=== PATIENT | male | born 1940 | race Hispanic/Latino ===

== ENCOUNTER 2017-08-20 12:10 | Emergency (ER) | payer OTHER ==
[~2017-08-20 12:10] MED LIST: GLIP5TAB11 PO; LISI-613 PO; ROSU40 PO; SITA1TAB6 PO; TAMS0.4C32 PO
[2017-08-20 13:02] LABS: BASOPHILS % (AUTO) 0.4 % (0.0-5.0); EOSINOPHILS % (AUTO) 1.3 % (0.0-8.0); HEMATOCRIT 39.5 % (42-54); LYMPHOCYTES % (AUTO) 14.8 % (21.0-51.0); MEAN CORPUSCULAR HEMOGLOBIN 29.3 pg (27.0-33.0); MEAN CORPUSCULAR VOLUME 86.2 fL (79-99); NEUTROPHILS % (AUTO) 77.5 % (40.0-77.0); PLATELET COUNT (AUTO) 245 K/uL (130-400); RED BLOOD CELL COUNT(AUTO) 4.58 MIL/uL (4.50-6.20); RED CELL DISTRIBUTION WIDTH 14.7 % (11.0-15.5)
[2017-08-20 13:12] LABS: POTASSIUM 4.5 mmol/L (3.5-5.1)
[2017-08-20] MEDS ORDERED: ONDANSETRON HCL MDV 20ML 2 MG/ML VIAL ONE (13:18)
[2017-08-20] MEDS ORDERED: GLUCAGON 1MG KIT 1 MG ML ONE (13:19)
[2017-08-20 13:23] LABS: ALBUMIN 3.7 g/dL (3.5-5.0); BILIRUBIN,TOTAL 0.6 mg/dL (0.2-1.0); TOTAL PROTEIN, SERUM 7.8 g/dL (6.0-8.3)
[2017-08-20] MEDS ORDERED: SODIUM CHLORIDE 0.9% 1000ML 1,000 ML IV ONE (13:28)
[2017-08-20 13:42] LABS: INR 0.96 (0.85-1.15); PARTIAL THROMBOPLASTIN TIME 25.1 SEC (26.3-35.5); PROTHROMBIN TIME 10.1 SEC (9.6-11.6)
[2017-08-20] MEDS ORDERED: PROPOFOL 10 MG/ML 20ML VIAL IV ONE ×2 (17:48)
== END 2017-08-20 19:01 | disposition home or self-care (01) ==
LOC: EDH 12:10
DX: T18.128A Food in esophagus causing other injury, initial encounter (principal); R11.10 Vomiting, unspecified; E11.9 Type 2 diabetes mellitus without complications; E78.5 Hyperlipidemia, unspecified; I10 Essential (primary) hypertension; R79.1 Abnormal coagulation profile; Z87.891 Personal history of nicotine dependence; X58.XXXA Exposure to other specified factors, initial encounter; Y93.89 Activity, other specified; Y92.89 Other specified places as the place of occurrence of the external cause; Y99.8 Other external cause status
CPT/HCPCS: 36415; 43239; 80053; 85025; 85610; 85730; 88305; 88312; 93005; 96361; 96374; 96375; 99285; J1610; J2704 ×2; J7030

== ENCOUNTER → 2018-08-09 | Outpatient (CLI) | payer OTHER | END | disposition home or self-care (01) | LOC: SHCH 11:21 | PROVIDERS: ATTEND Internal Medicine Cardiovascular Disease | DX: I51.7 Cardiomegaly (principal) | CPT/HCPCS: 93306 ==

== ENCOUNTER 2018-09-14 05:42 | Observation (INO) | payer OTHER ==
[2018-09-12 10:40] VITALS: BP 176/78
[2018-09-12 10:57] LABS: BASOPHILS % (AUTO) 0.4 % (0.0-5.0); EOSINOPHILS % (AUTO) 1.9 % (0.0-8.0); HEMATOCRIT 39.9 % (42-54); LYMPHOCYTES % (AUTO) 18.7 % (21.0-51.0); MEAN CORPUSCULAR HEMOGLOBIN 29.4 pg (27.0-33.0); MEAN CORPUSCULAR HGB CONC 33.4 g/dL (32.0-36.0); MEAN CORPUSCULAR VOLUME 88.1 fL (79-99); MONOCYTES % (AUTO) 6.7 % (3.0-13.0); NEUTROPHILS % (AUTO) 72.3 % (40.0-77.0); NUCLEATED RED BLOOD CELLS 0.1 % (0.0-0.19); PLATELET COUNT (AUTO) 265 K/uL (130-400); RED BLOOD CELL COUNT(AUTO) 4.53 MIL/uL (4.50-6.20); RED CELL DISTRIBUTION WIDTH 14.8 % (11.0-15.5); WHITE BLOOD COUNT (AUTO) 9.6 K/uL (4.8-10.8)
[2018-09-12 10:58] LABS: APPEARANCE,URINE Clear (CLEAR); BILIRUBIN,URINE Negative (NEGATIVE); COLOR,URINE Yellow (YELLOW); GLUCOSE, URINE (UA) Negative (NEGATIVE); KETONES,URINE Negative (NEGATIVE); LEUKOCYTE ESTERASE ,URINE Trace (NEGATIVE); NITRATE,URINE Negative (NEGATIVE); OCCULT BLOOD,URINE Large (NEGATIVE); PH,URINE 5.5 (5.0-8.0); PROTEIN,URINE Negative (NEGATIVE)
[2018-09-12 11:02] LABS: BACTERIA,URINE Rare /HPF (None Seen); SQUAMOUS EPITHELIAL CELL,UR Rare /HPF (0-2); WBC,URINE 0-1 /HPF (0-1)
[2018-09-12 11:06] LABS: CREATININE 1.2 mg/dL (0.5-1.5); POTASSIUM 4.9 mmol/L (3.5-5.1)
[2018-09-12 11:44] LABS: INR 0.95 (0.85-1.15); PARTIAL THROMBOPLASTIN TIME 28.1 SEC (26.3-35.5)
--- NOTE | 2018-09-13 16:45 | NUR ---
ABNORMAL LABS ABNORMAL LABS REPORTED TO ALEXA GIBSON BUN 30, CREAT 1.2, UA LEUKEST TRACE, NEGATIVE NITRATES, URBC 6-10, UOCCBLD LARGE. NO FURTHER ORDERS GIVEN, MAY PROCEED WITH PLANNED PROCEDURE.
[2018-09-14] VITALS (12 sets, daily range): BP systolic 103–160; BP diastolic 44–76
[~2018-09-14] VITALS: Ht 175.3 cm; Wt 98.8 kg
[~2018-09-14 05:42] MED LIST changes: +ATOR-2 PO; -LISI-613 PO; +LISI40TA4 PO; -ROSU40 PO
[2018-09-14] MEDS ORDERED: SODIUM CHLORIDE 0.9% 1000ML 1,000 ML IV ONE (06:24)
[2018-09-14] MEDS ORDERED: BIVALIRUDIN 250 MG/VIAL IV ONE (07:16)
[2018-09-14] MEDS ORDERED: LIDOCAINE HCL 1% 20 ML VIAL ONE (07:16)
[2018-09-14] MEDS ORDERED: NITROGLYCERIN 5 MG/ML 10 ML VIAL IV ONE (07:16)
[2018-09-14] MEDS ORDERED: IOHEXOL 350 MG/ML 100ML INFUS..BTL IV ONE ×2 (07:16→08:52)
[2018-09-14] MEDS ORDERED: IOHEXOL-350 50ML VIAL IV ONE (07:16)
[2018-09-14] MEDS ORDERED: MIDAZOLAM HCL 1 MG/ML 2ML VIAL ONE ×2 (07:17→08:38)
[2018-09-14] MEDS ORDERED: FENTANYL CITRATE PF 50 MCG/1 ML 2ML VIAL ONE (07:17)
[2018-09-14] MEDS ORDERED: AEC81 PO (07:25)
[2018-09-14] MEDS ORDERED: HEPARIN SODIUM 1000UNIT/ML 10ML VIAL ONE (08:27)
[2018-09-14] MEDS ORDERED: CLOPIDOGREL BISULFATE 300 MG TAB ONE (09:30)
[2018-09-14] MEDS ORDERED: ASPIRIN 81MG TAB.CHEW ONE (09:30)
[2018-09-14] MEDS ORDERED: SODIUM CHLORIDE 0.9% 1000ML 1,000 ML IV SCH (09:40)
[2018-09-14] MEDS ORDERED: GLUCAGON 1MG KIT 1 MG ML IM PRN ×2 (09:45)
[2018-09-14] MEDS ORDERED: DEXTROSE 50%-WATER 50 ML DISP.SYRIN IV PRN ×2 (09:45)
[2018-09-14] MEDS ORDERED: HYDRALAZINE HCL 20 MG/ML VIAL IV PRN (09:45)
[2018-09-14] MEDS ORDERED: NITROGLYCERIN 0.4 MG SL TAB SL PRN (09:45)
--- NOTE | 2018-09-14 10:15 | NUR ---
RECEIVED FROM TRANSITION COACH INTO PCCU ROOM 204. AA&OX3. UNLABORED RESPIRATIONS. NO DISTRESS NOTED. DENIES CHEST PAIN AND SHORTNESS OF BREATH. RT FEMORAL WITH ONE VENOUS SHEATH AND ONE ARTERIAL SHEATH IN PLACE. NO BLEEDING NOR HEMATOMA. INSTRUCTED PATIENT ON IMPORTANCE OF REMAINING IN SUPINE POSITION AND RESTRICT MOBILITY TO RIGHT LEG IN ORDER TO PREVENT SHEATH DISLODGEMENT AND BLEEDING/HEMATOMA. VERBALIZED UNDERSTANDING. DAUGHTER AT BEDSIDE. GAVE HER PATIENT STENT CARD. TELE PACK PLACED. SINUS KEYON HR 44.
[2018-09-14] MEDS: INSULIN HUMULIN R 100 UNIT/ML 3ML SQ SCH ×3 (11:30→21:00)
--- NOTE | 2018-09-14 12:20 | NUR ---
RIGHT FEMORAL VENOUS AND ARTERIAL LINES REMOVED. APPLIED DIRECT MANUAL PRESSURE FOR 20 MINUTES. TOLERATED WELL. APPLIED 4X4 GAUZE AND SECURED WITH CLEAR OPSITE. SITES SOFT, BILATERAL PEDAL PULSES PALPABLE. BP 130/76, HR 47, SINUS KEYON, O2 SAT 100%. REPORTED OFF TO PRIMARY CARE NURSE, HARRY PIERRE.
--- NOTE | 2018-09-14 12:52 | NUR ---
INFORMED PT OF BEDREST FOR 2 HOURS AND ON IV FLUIDS FOR 6 HOURS. VERBALIZED UNDERSTANDING.
--- NOTE | 2018-09-14 14:00 | NUR ---
RT FEMORAL DRESSING DRY & INTACT. NO BRUISING, BLEEDING NOR HEMATOMA. STRONG PALPABLE PEDAL PULSES.
--- NOTE | 2018-09-14 18:41 | NUR ---
SINUS KEYON HR 36 WITH JUNCTIONAL ESCAPE BEATS. ASYMPTOMATIC. DENIES DIZZINESS, SHORTNESS OF BREATH, AND LIGHT-HEADEDNESS. NOTIFIED Sridhar TILLMAN 12LD EKG DONE AND PANTERA REVIEWED IT. ORDER RECEIVED TO NOTIFY MD MOSS IF HR SUSTAINS BELOW 30BPM AND/OR IS SYMPTOMATIC. ENDORSED TO PM NURSE, HARRY AWAN.
--- NOTE | 2018-09-14 19:45 | NUR ---
RT. GROIN SOFT WITHOUT BLEEDING OR HEMATOMA. PEDAL PULSES PALPABLE.
[2018-09-14] MEDS ORDERED: ATORVASTATIN CALCIUM 40 MG TABLET PO SCH (21:00)
--- NOTE | 2018-09-15 00:30 | NUR ---
RT. MARIA FERNANDA MCLAUGHLIN.
[2018-09-15 04:01] VITALS: BP 126/59
[2018-09-15 04:05] LABS: HEMATOCRIT 37.4 % (42-54); MEAN CORPUSCULAR HEMOGLOBIN 28.7 pg (27.0-33.0); MEAN CORPUSCULAR HGB CONC 32.9 g/dL (32.0-36.0); MEAN CORPUSCULAR VOLUME 87.1 fL (79-99); PLATELET COUNT (AUTO) 261 K/uL (130-400); RED CELL DISTRIBUTION WIDTH 14.8 % (11.0-15.5)
[2018-09-15 04:23] LABS: CREATININE 1.2 mg/dL (0.5-1.5); POTASSIUM 4.9 mmol/L (3.5-5.1)
[2018-09-15] MEDS: INSULIN HUMULIN R 100 UNIT/ML 3ML SQ SCH (07:30)
[2018-09-15 07:37] VITALS: BP 149/66
--- NOTE | 2018-09-15 07:45 | NUR ---
AM ASSESSMENT PT LAYING IN BED, WATCHING TV. FAMILY @ BEDSIDE. A/O X 3. NO SOB. NO DISTRESS NOTED. DENIES CHEST PAIN OR DISCOMFORT. DENIES PALPITATIONS. TELE: SB 50s. DENIES N/V AND/OR DIARRHEA. RT GROIN DSG DRY & INTACT. PUNCTURE SITE SOFT, NON-TENDER. NO BLEEDING, NO HEMATOMA NOTED. (+) BILATERAL STRONG PEDAL PULSES. BLE PINK & WARM TO TOUCH. UP W/ASSISTANCE. INSTRUCTED TO CALL FOR ASSISTANCE. CALL LIVE W/IN REACH.
[2018-09-15] MEDS ORDERED: GLIPIZIDE XL 5MG TAB PO SCH (08:00)
[2018-09-15] MEDS ORDERED: CLOP75TA14 PO (08:14)
[2018-09-15] MEDS ORDERED: LISINOPRIL 40 MG TABLET PO SCH (09:00)
[2018-09-15] MEDS ORDERED: CLOPIDOGREL BISULFATE 75 MG TAB PO SCH (09:00)
[2018-09-15] MEDS ORDERED: TAMSULOSIN HCL 0.4 MG CAP.ER.24H PO SCH (09:00)
[2018-09-15] MEDS ORDERED: ASPIRIN 81MG TAB.CHEW PO SCH (09:00)
[2018-09-15] MEDS ORDERED: LISINOPRIL 10 MG TABLET PO SCH (09:00)
--- NOTE | 2018-09-15 09:30 | NUR ---
GIVEN DISMISSAL INSTRUCTIONS AND WRITTEN SCRIPT TO PATIENT. VERBALIZED UNDERSTANDING. REMOVED SALINE LOCK FROM LEFT HAND, IV SITE WITHOUT REDNESS NOTED. REMOVED TELE PACK.
--- NOTE | 2018-09-15 09:50 | NUR ---
DISCHARGE PT TAKEN TO PRIVATE VEHICLE BY Darren RAZO PCP, ACCOMPANIED BY FAMILY. NO DISTRESS NOTED.
== END 2018-09-15 09:55 | disposition home or self-care (01) ==
LOC: DAH 05:42 → DAHIP 05:43 → EDSTATUS 10:00 → 2AH 10:28
PROVIDERS: ADMIT Internal Medicine Cardiovascular Disease; ATTEND Internal Medicine Cardiovascular Disease
DX: I25.810 Atherosclerosis of coronary artery bypass graft(s) without angina pectoris (principal); I25.119 Atherosclerotic heart disease of native coronary artery with unspecified angina pectoris; C61 Malignant neoplasm of prostate; E11.9 Type 2 diabetes mellitus without complications; E78.5 Hyperlipidemia, unspecified; I10 Essential (primary) hypertension; I25.82 Chronic total occlusion of coronary artery; I35.0 Nonrheumatic aortic (valve) stenosis; T82.857A Stenosis of other cardiac prosthetic devices, implants and grafts, initial encounter; Y83.2 Surgical operation with anastomosis, bypass or graft as the cause of abnormal reaction of the patient, or of later complication, without mention of misadventure at the time of the procedure; Z95.1 Presence of aortocoronary bypass graft; Z82.49 Family history of ischemic heart disease and other diseases of the circulatory system; Z87.891 Personal history of nicotine dependence
CPT/HCPCS: 36415 ×3; 71045; 80048 ×2; 80061; 81001; 82948 ×5; 83880; 85025; 85027; 85610; 85730; 93005 ×2; 93461; 96372; A4606; C1769 ×3; C1874; C1887; C1894 ×3; C9604; G0378 ×21; J0583; J1644 ×3; J1815; J2250 ×2; J3010; J3490; J7030; Q9965 ×3; Q9967 ×3; 99156; 99157

== ENCOUNTER → 2018-11-08 | Outpatient (CLI) | payer OTHER ==
[~2018-11-08] MED LIST changes: +AEC81 PO; +CLOP75TA14 PO; +IOHEXOL 350 MG/ML 100ML INFUS..BTL IV ONE
== END | disposition home or self-care (01) ==
LOC: RAH 07:50
PROVIDERS: ATTEND Internal Medicine Cardiovascular Disease
DX: I11.9 Hypertensive heart disease without heart failure (principal); N28.1 Cyst of kidney, acquired; N40.0 Benign prostatic hyperplasia without lower urinary tract symptoms; I70.0 Atherosclerosis of aorta; I25.10 Atherosclerotic heart disease of native coronary artery without angina pectoris
CPT/HCPCS: 74174; 75574; Q9967

== ENCOUNTER → 2020-05-21 | Outpatient (CLI) | payer OTHER ==
[~2020-05-21] MED LIST changes: -IOHEXOL 350 MG/ML 100ML INFUS..BTL IV ONE; -LISI40TA4 PO; +LISI40TA9 PO
== END | disposition home or self-care (01) ==
LOC: SHCH 12:17
PROVIDERS: ATTEND Internal Medicine Cardiovascular Disease
DX: I35.0 Nonrheumatic aortic (valve) stenosis (principal)
CPT/HCPCS: 93306; 93356

== ENCOUNTER → 2020-07-09 | Outpatient (CLI) | payer OTHER | END | disposition home or self-care (01) | LOC: RAH 09:36 | PROVIDERS: ATTEND Family Medicine | DX: R13.12 Dysphagia, oropharyngeal phase (principal); R63.3 Feeding difficulties; K21.00 Gastro-esophageal reflux disease with esophagitis, without bleeding | CPT/HCPCS: 74230; 92611 ==

== ENCOUNTER → 2024-08-28 | Outpatient (CLI) | payer OTHER ==
[~2024-08-28] MED LIST changes: +CLOP-31 PO; -CLOP75TA14 PO; -GLIP5TAB11 PO; +GLIP5TAB15 PO; +IOHEXOL 350 MG/ML 100ML INFUS..BTL IV ONE
--- NOTE | 2024-08-28 11:18 | HMCIMG ---
CT OF THE CHEST WITH CONTRAST- CT Cardiac Angio co-interpretation This is done as part of the CT cardiac angiogram study. The interpretation of the coronary arteries will be done by pattern puncher in a separate report. History: over-read Comparison: November 08, 2024 CT Dose Index (CTDI): 77.90 mGy Dose Length Product (DLP): 493.40 total mGy PROTOCOL: Examination is done at 2.5 millimeter volumetric acquisition after contrast administration with Isovue 370, 100 cc IV, without complications. Photography is done at 5 millimeter thick intervals for the thorax. The examination begins above the heart and therefore the lung apices are incompletely included. The rest of the left lung is included but the right lung is only included up to its middle third. The periphery of the right lung is not included in the study. FINDINGS: Left thyroid gland demonstrates an inhomogeneous mass with some calcifications, measuring at least 4.1 by a 2.8 cm. The visualized part of the airway is preserved. The bony and soft tissue structures of the chest wall are unremarkable. The aorta is unremarkable. No mediastinal lymphadenopathy is seen. The lung windows demonstrate no worrisome pulmonary nodules, masses or infiltrates. There is no evidence of pulmonary embolism in the visualized lung segments. The upper abdominal views are unremarkable. Impression: Left thyroid mass, stable when compared to prior examination of 2019. Consider further evaluation with thyroid ultrasound, nonemergent.
== END | disposition home or self-care (01) ==
LOC: RAH 07:47
PROVIDERS: ATTEND Internal Medicine Cardiovascular Disease
DX: I20.9 Angina pectoris, unspecified (principal); E04.1 Nontoxic single thyroid nodule; R22.2 Localized swelling, mass and lump, trunk; R07.9 Chest pain, unspecified
CPT/HCPCS: 75574; Q9967

== ENCOUNTER 2024-12-07 21:09 | Emergency (ER) | payer OTHER ==
[~2024-12-07] VITALS: Ht 170.2 cm; Wt 90.7 kg
[~2024-12-07 21:09] MED LIST changes: -IOHEXOL 350 MG/ML 100ML INFUS..BTL IV ONE; +LISI40TA15 PO; -LISI40TA9 PO
[2024-12-07] MEDS: LIDOCAINE HCL 2% VISCOUS 15 ML UDCUP PO ONE (22:55)
[2024-12-07] MEDS: MAG/ALUM/SIMETH 30 ML UDCUP PO ONE (22:55)
--- NOTE | 2024-12-07 22:58 | NUR ---
PATIENT WAS ABLE TO SWALLOW MEDICATIONS WITHOUT TROUBLE
--- NOTE | 2024-12-07 23:15 | ERN ---
General Chief Complaint: Swallowed Foreign Body Stated Complaint: C/O FO IN THROAT Time Seen by MD: 21:29 Time Seen by Midlevel: 21:29 Source: patient History of Present Illness Initial Comments The patient is an 84-year-old male presenting to the emergency department with a foreign body sensation to his throat. Patient states proximally2 hours prior to arrival he was eating chicken when he felt it get stuck in his throat. He attempted to throw up in order to relieve his symptoms but was unable to. When he arrived to the emergency department he states the piece of food finally passed but still wanted further evaluation. During my initial evaluation he denied having any symptoms. Allergies: Coded Allergies: No Known Drug Allergies (Verified Allergy, Unknown, 11/06/13) Home Meds Active Scripts Clopidogrel Bisulfate (Plavix) 75 Mg Tablet, 75 MG PO DAILY for 90 Days, #90 TAB 3 Refills Prov:DAISY BRUNER PAC 09/15/18 Reported Medications Aspirin (ASPIRIN 81 MG ECTAB) 81 Mg Ectab, 81 MG PO DAILY, TAB.EC 09/14/18 Atorvastatin Calcium (Atorvastatin Calcium) 80 Mg Tablet, 80 MG PO AM, TAB 09/12/18 Lisinopril (Lisinopril) 40 Mg Tablet, 40 MG PO AM, TAB 09/12/18 Tamsulosin HCl (Tamsulosin HCl) 0.4 Mg Cap.er.24h, 0.4 MG PO AM, CAPSULE.DR 08/29/14 Glipizide (Glipizide) 5 Mg Tablet, 5 MG PO AM, TAB 08/29/14 Sitagliptin Phos/Metformin HCl (Janumet 50-1,000 mg Tablet) 1 Each Tablet, 1 EACH PO DAILY, TAB 08/28/14 Past Medical History Past Medical History: Diabetes-Type II, Hypertension Past Surgical History: Other ROS Dictation CONSTITUTIONAL: Negative except for HPI HEAD/FACE: Negative except for HPI EENT: Negative except for HPI RESPIRATORY: Negative except for HPI GASTROINTESTINAL/ABDOMINAL: Negative except for HPI GENITOURINARY: Negative except for HPI MUSCULOSKELETAL: Negative except for HPI INTEGUMENTARY: Negative except for HPI NEUROLOGICAL/PSYCH: Negative except for HPI HEMATOLOGIC/LYMPHATIC: Negative except for HPI All Systems Negative, Except as noted above. 13 point review of systems assessed and all negative except for above. Physical Exam Physical Exam Dictation Vital Signs reviewed General Appearance: Alert, oriented x 3, no acute distress, well developed, nourished. Head and Face: non-traumatic. Eyes: PERRL, pink conjunctivas, eyelid no trauma, anterior chamber with arcus senilis. Ears: Pinnas intact and no signs of trauma or erythema ear canals clear and no discharge TM no erythema Nose: No discharge, no bleeding. Oropharynx: Mouth normal, tongue pink, pharynx clear,no erythema, tonsils no exudates, no abscesses noted, mucous membrane moist Neck: Supple, non-tender, no thyromegaly, no masses, no JVD, no bruits Breast:Deferred Chest:No tenderness, no crepitus, no paradoxical movement, no retractions Lungs:Clear, well-ventilated, symmetric, no rales, no wheezing, no rhonchi, no stridor, good breath sounds bilaterally Heart: Regular rate, regular rhythm, no murmur, no gallops Vascular: no peripheral edema, Abdomen: Soft, positive bowel sounds, nondistended, no guarding, nontender, no rebound, no masses no hepatomegaly, no splenomegaly, no Lopez's sign, no hernias. Rectal: Deferred Genital: Deferred Neurological: Normal speech, motor function intact, sensory function intact Musculoskeletal: Neck nontender, full range of motion, back nontender, full range of motion, Extremities: nontender, full range of motion Skin: Color pink, dry, no turgor, no rash, no lacerations, no abrasions, no contusions. Lymphatic: Deferred MDM MDM: The patient is an 84-year-old male presenting to the emergency department with a foreign body sensation to his throat. Patient states proximally2 hours prior to arrival he was eating chicken when he felt it get stuck in his throat. He attempted to throw up in order to relieve his symptoms but was unable to. When he arrived to the emergency department he states the piece of food finally passed but still wanted further evaluation. During my initial evaluation he denied having any symptoms. On physical examination the patient is in no acute distress. Patient was given viscous lidocaine and Maalox to help Stephen GI tract. A chest x-ray was obtained which reveals no acute abnormalities or foreign bodies. Patient will be discharged home with supportive management Differential diagnosis: Retained foreign body, food impaction There are no social concerns with this patient. Prescription drug management Prescriptions will include: None Medical management and examination interpretation discussions were had by me with other qualified healthcare professionals as indicated for the patient's care. ED Course Orders Procedure Category Date Status Time Chest 1vw RAD 12/07/24 Taken 22:45 Lidocaine Hcl 2% PHA 12/07/24 Complete Viscous (Lidocaine Hcl 23:00 Mag/Alum/Simeth 30ml PHA 12/07/24 Complete (Maalox Plus 30ml) 23:00 Current Medications Medications (Trade) Dose Ordered Sig/Sean Route PRN Reason Start Time Stop Time Status Last Admin Dose Admin Al Hydroxide/Mg Hydroxide (MAALox PLUS 30ML) 30 ml ONCE ONCE PO 12/07/24 23:00 12/07/24 23:01 DC 12/07/24 22:55 Lidocaine HCl (Lidocaine HCl 2% Viscous) 10 ml ONCE ONCE PO 12/07/24 23:00 12/07/24 23:01 DC 12/07/24 22:55 Vital Signs Date Time Temp Pulse Resp B/P (MAP) Pulse Ox O2 Delivery O2 Flow Rate FiO2 12/07/24 21:11 98.4 69 20 140/60 98 Room Air DX & DISP Disposition: Discharge Departure Impression: Primary Impression: Foreign body sensation, throat Condition: Stable Referrals: JUSTINE NAPIER MD (PCP) I have reviewed the case, and I agree with, Diagnosis and Plan I performed the substantive portion of the visit. I have reviewed and personally made and approve the management plan that is documented in the note by myself or the GR[facility]. I acknowledge for responsibility for the patient's management plan. CHESTER ROSARIO Dec 07, 2024 23:15
[2024-12-07 23:23] VITALS: BP 113/58; PULSE 60; RESP 18; TEMP 98.2; O2SAT 98
--- NOTE | 2024-12-08 | HMCIMG ---
EXAM: CR Chest, 3 views. CLINICAL HISTORY: Rule out foreign body. COMPARISON: Chest radiograph dated 09/17/2018. FINDINGS: The lungs show no infiltrates or other acute findings. No pleural effusion or pneumothorax. The cardiomediastinal silhouette is within normal limits. Status poststernotomy. Left-sided cardiac pacemaker device in place. There is a graft around the aortic root. No acute osseous abnormality. IMPRESSION: No radiopaque foreign body is evident. Status poststernotomy. Left-sided cardiac pacemaker device in place. There is a graft around the aortic root. No acute cardiopulmonary pathology is evident. No adverse interval changes. /[place]
== END 2024-12-07 23:28 | disposition home or self-care (01) ==
LOC: EDH 21:09
DX: R09.A2 Foreign body sensation, throat (principal); E11.9 Type 2 diabetes mellitus without complications; I10 Essential (primary) hypertension; Z79.02 Long term (current) use of antithrombotics/antiplatelets; Z79.82 Long term (current) use of aspirin; Z79.84 Long term (current) use of oral hypoglycemic drugs; Z95.0 Presence of cardiac pacemaker
CPT/HCPCS: 71045; 99283